=== PATIENT | female | born 1990 | race Asian ===

== ENCOUNTER 2017-11-26 13:56 | Emergency (ER) | payer BC ==
[~2017-11-26] VITALS: Ht 162.6 cm; Wt 60.0 kg
[2017-11-26 13:58] VITALS: BP 115/79
== END 2017-11-26 15:49 | disposition home or self-care (01) ==
LOC: ER 14:13
DX: M54.5 Low back pain (principal); F17.200 Nicotine dependence, unspecified, uncomplicated; V43.62XA Car passenger injured in collision with other type car in traffic accident, initial encounter; Y93.89 Activity, other specified; Y92.89 Other specified places as the place of occurrence of the external cause; Y99.8 Other external cause status
CPT/HCPCS: 81025; 99283